=== PATIENT | male | born 1970 | race Caucasian/White ===

== ENCOUNTER 2016-11-25 14:35 | Inpatient (IN) ==
[2016-11-25] MEDS ORDERED: Sodium Chloride 0.9% 1,000 ML PRIMARY IV ONE ×2 (15:02→15:20)
[2016-11-25] MEDS ORDERED: NORMAL SALINE 10 ML SYRINGE FLUSH IVP PRN (15:02)
[2016-11-25] MEDS ORDERED: Sodium Chloride 0.9% 1,000 ML, Magnesium Sulfate 2gm (Premix) 50 ML with Multivitamin I... IV ONE ×5 (15:03)
[2016-11-25] MEDS ORDERED: LORazepam 2 MG/1 ML VIAL IVP ONE ×2 (15:04→17:08)
[2016-11-25 15:44] LABS: BASOPHILS # (AUTO) 0.19 10*3/UL; BASOPHILS % (AUTO) 2.2 % (0-1); EOSINOPHILS # (AUTO) 0 10*3/UL; EOSINOPHILS % (AUTO) 0 % (0-8); Hematocrit [HCT] 39.4 % (42.0-52.0); Hemoglobin [HGB] 13.4 g/dL (14.0-18.0); MEAN CORPUSCULAR HEMOGLOBIN 30.3 PG (27-31); MEAN CORPUSCULAR VOLUME 89.1 FL (80-90); MEAN PLATELET VOLUME 10.7 FL (7.4-12.2); MONOCYTES # (AUTO) 0.98 10*3/UL (0.3-0.8); MONOCYTES % (AUTO) 11.3 % (5-15); NEUTROPHILS # (AUTO) 6.31 10*3/UL; NEUTROPHILS % (AUTO) 72.5 % (50-80); RED BLOOD COUNT 4.42 10^6/uL (4.70-6.10)
[2016-11-25 15:53] LABS: BLOOD UREA NITROGEN 10 mg/dL (7-22); BUN/CREATININE RATIO 14.28 (6-20); MAGNESIUM 1.3 mg/dL (1.6-2.4); SERUM ALBUMIN 4.4 g/dL (3.5-4.8)
[2016-11-25 15:57] LABS: PLATELET MORPHOLOGY COMMENT NORMAL MORPHOLOGY (NORM); RBC MORPHOLOGY COMMENT NORMAL MORPHOLOGY (NORM); WBC MORPHOLOGY COMMENT NORMAL MORPHOLOGY (NORM)
[2016-11-25] MEDS ORDERED: LABETALOL 20 MG/4 ML (5 MG/1 ML) SYRINGE IVP ONE ×3 (16:14→17:33)
[2016-11-25 16:41] LABS: BILIRUBIN,URINE NEGATIVE (NEG); CLARITY,URINE CLEAR (CLEAR); COLOR,URINE YELLOW; GLUCOSE, URINE (UA) NEGATIVE (NEG); NITRATE,URINE NEGATIVE (NEG); OCCULT BLOOD,URINE NEGATIVE (NEG); PROTEIN,URINE TRACE mg/dl (NEG); UROBILINOGEN,URINE 0.2 mg/dL (0.2)
[2016-11-25 17:00] LABS: URINE SAMPLE TYPE CLEAN CATCH URINE
[2016-11-25 17:01] LABS: SQUAMOUS EPITHELIAL CELL,UR RARE
[2016-11-25 17:02] LABS: AMPHETAMINE SCREEN NEGATIVE (NEG); BACTERIA,URINE RARE; CANNABINOID SCREEN,URINE NEGATIVE (NEG); COCAINE SCREEN NEGATIVE (NEG); METHADONE URINE SCREEN NEGATIVE (NEG); METHAMPHETAMINES SCREEN,URINE NEGATIVE (NEG); OPIATE SCREEN,URINE NEGATIVE (NEG); URINE SAMPLE TYPE CLEAN CATCH URINE; URINE SPECIFIC GRAVITY - MAN 1.015
[2016-11-25] MEDS ORDERED: Belladon/PHENobarbital Elixir 10 ML, Lidocaine Viscous Liquid 2% 15 ML, Mag Hyd/Al Hyd/... PO ONE ×3 (18:15)
[2016-11-25] MEDS ORDERED: MAG HYDROX/AL HYDROX/SIMETH 30 ML SUSP PO PRN (18:28)
[2016-11-25] MEDS ORDERED: MAGNESIUM 400 MG/5 ML - 30 ML (MILK OF MAGNESIA) PO PRN (18:28)
[2016-11-25] MEDS ORDERED: NICOTINE 21 MG /DAY PATCH TRANSDERM PRN (18:28)
[2016-11-25] MEDS ORDERED: ONDANSETRON 4 MG/2 ML VIAL IV PRN (18:28)
[2016-11-25] MEDS ORDERED: LIDOCAINE W/ SODIUM BICARB 0.5 ML SYR SUBD PRN (18:28)
[2016-11-25] MEDS ORDERED: Loperamide Tab 2 MG TABLET PO PRN (18:28)
[2016-11-25] MEDS ORDERED: Diazepam 10 mg Tab (ETOH withdrawal) PO PRN (18:28)
--- NOTE | 2016-11-25 19:20 | PDOC ---
History and Physical - History of Present Illness Date and Time of Service: 11/25/2016, 1915 Chief Complaint: I'm in withdrawal History of Present Illness: This very pleasant 46-year-old male who has a binge alcohol pattern for the vast majority of his adult life, with some legal consequences, as well as health consequences and then admission in [place] for alcohol withdrawal in the past. He presents here complaining that he is in withdrawal with symptoms of sweating, nausea and vomiting, and some tremors. He states he was really not very well when he presented to the emergency room. He was hypertensive and tachycardic and got several doses of labetalol and Ativan that seemed to help. He states that he stopped drinking around 30 hours ago or so, and this was after an 8 day queen. He states he drinks hard alcohol including vodka and drinks beer and any alcoholic and get his hands on when he binge drinks. He states he was here vacationing in [place], and his symptoms got worse as he was driving home, so he stopped here for evaluation. He went through alcohol withdrawal once that required hospitalization and did a 30 day stent at an inpatient rehabilitation stay on it. He has done Alcoholics Anonymous several times. He's never been on any medications for alcohol cessation. He said he may have problems with anxiety and was on Paxil for that but that did not work is not have a primary care provider. Past Medical History Medical History: 1. Chronic alcoholism, binge pattern. 2. Arthritis status post left knee replacement. 3. History of Luz-Carter tear Surgical History: 1. Luz-Carter tear repair, endoscopically. 2. Left knee replacement Pertinent Family History: Sister has breast cancer and he has a nephew with leukemia Past Social History: Smokes, has binge alcohol pattern drinking. 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 . Lives in [place], [place], has 2 children. Tobacco Use: Current Some Day Smoker Substance Use Type: None Alcohol Use: Heavy Medication / Allergies Home Medications: Home Medications Medication Instructions Recorded Confirmed Type Omeprazole DR [PriLOSEC] 20 mg PO DAILY 11/25/16 11/25/16 History Allergies/Adverse Reactions: Allergies Allergy/AdvReac Type Severity Reaction Status Date / Time No Known Allergies Allergy Unverified 11/25/16 14:44 Review of Systems - Review of Systems All Systems: Reviewed & No Additional Complaints Except as Stated (I did a 12 point review systems and it is negative except for as per history of present illness and that noted below.) - Gastrointestinal Gastrointestinal / Abdominal: REPORTS: Heartburn (Discomfort that was relieved by GI cocktail in the emergency room) - Musculoskeletal Musculoskeletal: REPORTS: Other (Complains of joint pains, chronic. States knees are like "popcorn") Exam - Vitals Vital Signs: Vital Signs Pulse Ox 95 Oxygen Delivery Method Room Air Vital Signs - Last Taken Temperature 96.8 F 11/25/16 18:51 Pulse Rate 84 11/25/16 18:58 Respiratory Rate 20 11/25/16 18:58 Blood Pressure 162/117 11/25/16 18:58 Pulse Ox 95 11/25/16 18:58 - General General Appearance: POSITIVE: No Acute Distress, Cooperative - Head Head Exam: POSITIVE: Normal Inspection, Normocephalic, Atraumatic - Eye Eye Exam: POSITIVE: EOMI, No Scleral Icterus - ENT ENT Exam: POSITIVE: Mucous Membranes Dry - Neck Neck Exam: POSITIVE: Normal Inspection, No Tenderness, No Thyromegaly - Respiratory Respiratory Exam: POSITIVE: Clear to Auscultation - Bilaterally, Breathing Non Labored, Normal to Percussion and Palpation - Cardiovascular Cardiovascular Exam: POSITIVE: RRR, No Murmur, No Clicks, No Gallops, No Rubs, No JVD - GI/Abdominal GI/Abdominal Exam: POSITIVE: Normal Bowel Sounds, Non Tender, Non Distended, Soft - Rectal Rectal Exam: POSITIVE: Deferred - External Exam: POSITIVE: Deferred Exam: POSITIVE: Deferred - Extremities Extremities Exam: POSITIVE: No Clubbing Present, No Edema Present, No Cyanosis Present Additional Extremities Exam Details: Bilateral hand tremors consistent with withdrawal. - Back Back Exam: POSITIVE: Normal Inspection, No CVA Tenderness - Neurological Neurological Exam: POSITIVE: Alert, Oriented x 3, No Facial Droop, Speech Intact / Clear, Moves All Extremities Equally - Psychiatric Psychiatric Exam: POSITIVE: Anxious - Integumentary Integumentary Exam: POSITIVE: Normal Color, Warm, Dry, Intact - Central Line Examination Central Line Present on Admission: No Results - Labs CBC and BMP: 11/25/16 15:40 11/25/16 15:40 Labs - Last 24 Hours: Laboratory Results 11/25/16 11/25/16 11/25/16 Range/Units 15:40 16:23 16:57 WBC 8.70 (4.8-10.8) 10^3/uL RBC 4.42 L (4.70-6.10) 10^6/uL Hgb 13.4 L (14.0-18.0) g/dL Hct 39.4 L (42.0-52.0) % MCV 89.1 (80-90) FL MCH 30.3 (27-31) PG MCHC 34.0 (33-37) g/dL RDW Std Deviation 46.8 (39-50) fL RDW Coeff of Isabelle 14.6 H (11.5-14.5) % Plt Count 300 (140-350) 10*3/uL MPV 10.7 (7.4-12.2) FL Immature Gran % (Auto) 0.2 (0-5) % Neut % (Auto) 72.5 (50-80) % Lymph % (Auto) 13.8 (10-50) % [place] % (Auto) 11.3 (5-15) % Eos % (Auto) 0 (0-8) % Baso % (Auto) 2.2 H (0-1) % Immature Gran # (Auto) 0.02 10*3/UL Neut # (Auto) 6.31 10*3/UL Lymph # (Auto) 1.20 10*3/uL [place] # (Auto) 0.98 H (0.3-0.8) 10*3/UL Eos # (Auto) 0 10*3/UL Baso # (Auto) 0.19 10*3/UL WBC Morphology Comment Normal morphology (NORM) Plt Morphology Comment Normal morphology (NORM) RBC Morph Comment Normal morphology (NORM) Sodium 137 (135-145) meq/L Potassium 3.8 (3.8-5.2) meq/L Chloride 99 (98-112) meq/L Carbon Dioxide 23 (23-33) meq/L Anion Gap 15 (5-20) BUN 10 (7-22) mg/dL Creatinine 0.7 (0.70-1.50) mg/dL Estimated GFR > 60 (>60 ml/min/1.73m(2)) BUN/Creatinine Ratio 14.28 (6-20) Glucose 108 (78-110) mg/dL Calculated Osmolality 283.0 (267-292) mOsm/kg Lactic Acid 3.2 H (0.70-2.10) MMOL/L Calcium 9.7 (8.7-10.7) mg/dL Magnesium 1.3 L (1.6-2.4) mg/dL Total Bilirubin 1.2 (0.3-1.2) mg/dL AST 66 H (21-57) IU/L ALT 105 H (21-72) IU/L Alkaline Phosphatase 75 (38-126) IU/L Total Protein 7.7 (6.1-8.0) g/dL Albumin 4.4 (3.5-4.8) g/dL Globulin 3.3 (2.50-4.10) g/dL Albumin/Globulin Ratio 1.30 (1.3-2.0) mg/g Ur Collection Type Clean catch urine Urine Color Yellow Urine Clarity Clear (CLEAR) Urine pH 8.0 (5.0-8.5) Ur Specific [place] 1.015 (1.005-1.030) U Specif Grav (Refrac) 1.015 Urine Protein Trace (NEG) mg/dl Urine Glucose (UA) Negative (NEG) mg/dL Urine Ketones Trace (NEG) Urine Occult Blood Negative (NEG) Urine Nitrate Negative (NEG) Urine Bilirubin Negative (NEG) Urine Urobilinogen 0.2 (0.2) mg/dL Ur Leukocyte Esterase Negative (NEG) Urine RBC 1-3 (NONE) /hpf Urine WBC 1-3 (NONE) Ur Squamous Epith Cells Rare (NONE) Ur Renal Epithelial Cell None (NONE) Urine Crystals None Urine Bacteria Rare (NONE) Urine Casts None Urine Mucus None (NONE) Urine Trichomonas None (NONE) Urine Yeast None (NONE) Urine Opiates Screen Negative (NEG) Ur Buprenorphine Negative (NEG) Ur Oxycodone Screen Negative (NEG) Urine Methadone Screen Negative (NEG) Ur Propoxyphene Screen Negative (NEG) Barbiturate Screen Negative (NEG) U Tricyclic Antidepress Negative (NEG) Phencyclidine Screen Negative (NEG) Amphetamines Screen Negative (NEG) U Methamphetamines Scrn Negative (NEG) Benzodiazepines Screen Negative (NEG) Cocaine Screen Negative (NEG) U Marijuana (THC) Screen Negative (NEG) Serum Alcohol < 10 (0-10) mg/dL Assessment and Plan - Patient Problems (1) Alcohol withdrawal syndrome Current Visit: Yes Status: Acute Qualifiers: Complication of substance-induced condition: with unspecified complication Qualified Description: Alcohol withdrawal syndrome with complication Qualifier Code(s): (F10.239) Alcohol dependence with withdrawal, unspecified (2) Alcoholism Current Visit: Yes Status: Acute (3) Arthritis Current Visit: Yes Status: Acute - Assessment / Plan Additional Assessment/Plan Details: Admit the patient. CIWA protocol, benzodiazepines, and eventually naloxone or naltrexone therapy for prevention of heavy alcohol use if the patient is willing to do that as an outpatient. I think the patient should establish primary care provider post hospital stay. Replace electrolytes, including magnesium, and potassium as necessary. Seizure precautions. I did discuss the nature of alcohol withdrawal, and given that he has been hypertensive, this could certainly indicate that he may be going into delirium tremens, and I also discussed that upwards of 10% of patients and delirium tremens can pass on. I may use other than a try her best to see if we can hold off his alcohol withdrawal and improvement. Antiemetics and the written for, particularly with history of Luz-Carter tear. Check electrolytes and labs in morning. Plan above discussed with patient and he agreed. I think the patient should try Alcoholics Anonymous again, but ultimately I think he needs to consider other therapies as these have largely not been effective for him in the past.
[2016-11-25] MEDS: Diazepam Inj (ETOH withdrawal)10 MG/2 ML CARPUJECT IVP PRN ×2 (19:24→21:49)
[2016-11-25] MEDS ORDERED: Magnesium Sulfate 2gm (Premix) 2 GM in Premix 1 BAG IV ONE (19:33)
--- NOTE | 2016-11-25 19:39 | PDOC ---
General Adult HPI - General Chief Complaint: Drug / Alcohol Use &/or Abuse Stated Complaint: ETOH WITHDRAWAL Date Seen by Provider: 11/25/16 Time Seen by Provider: 14:50 Source: POSITIVE: Patient Exam Limitations: POSITIVE: No limitations Nurse's Notes Reviewed & Considered: Yes - History of Present Illness Initial Comment: The patient is a 46-year-old male. He lives in [place], [place] and is here on a fishing trip. He states he is a chronic alcoholic and states he started drinking alcohol at 13 or 14 years of age. He states he normally drinks about a fifth of vodka daily and has been drinking more during the last 8 days. He states he has been "on a queen". 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 Approximately 10 hours BROKER ASSISTANT he became very tremulous and states that he is "withdrawing". He states he has been treated for delirium tremens in [place] in the past, most recently about 6 months ago and on that occasion she states he had hallucinations. He states he has undergone inpatient rehabilitation for alcohol abuse in [place]. He states he's been told he has high blood pressure , but is not presently taking any antihypertensives. He states he takes Prilosec for "heartburn". Have you received a tetanus shot in the past 10 years?: Yes Body Location Affected: REPORTS: Other (Tremulousness, anxiety, "withdrawing from alcohol ".) Timing: REPORTS: Gradual, Getting Worse Duration: <24 hours Severity: Moderate Quality: REPORTS: Other (Patient denies any pain anywhere.) Context: REPORTS: Other (Stop drinking alcohol as above) Modifying Factors: improves with: Nothing. worse with: Analgesics, Antacids, Breathing, Coughing, Defecating, Vomiting, Eating, Exercise, Lying down, Urinating, Palpation, Movement, Rest, Upright Position, Walking, Remaining Still , Other Similar Symptoms Previously: Yes (has undergone treatment for alcohol withdrawal in the past in [place]) Recent Care Received: REPORTS: Denies Any Prior Injuries Related to Current Complaint?: No - Patient Home Medications Home Medications: Home Medications Omeprazole DR [PriLOSEC] 20 mg PO DAILY 11/25/16 - Patient Allergies Allergies/Adverse Reactions: Allergies Allergy/AdvReac Type Severity Reaction Status Date / Time No Known Allergies Allergy Unverified 11/25/16 14:44 Past Medical History - heen HEENT History: Denies History Cardiovascular History: Hypertension Additional Cardiovasular History: NOT CURRENTLY TREATING Respiratory History: Denies History Gastrointestinal History: Denies History Genitourinary History: Denies History Endocrine History: Denies History Musculoskeletal History: Denies History Prosthesis or Implant: No Neurological History: Denies History Blood Disorders: Denies History Psychiatric History: Denies History History of Sexually Transmitted Diseases: No Male Reproductive History: Denies History Cancer History: Denies History In Past Year Been Physically Harmed or Verbally Threatened: No History of MDRO: No History of Other Communicable Diseases: No Tobacco Use: Current Some Day Smoker Alcohol Use: Heavy How much alcohol do you normally drink a day?: 1/5 OF VODKA PER DAY Substance Use Type: None Previous Surgical History: Yes Type / Date of Surgery: LEFT KNEE Past Medical History Reviewed: Reviewed - No Changes ROS - Limitations ROS Limitations: No Limitations Constitution: REPORTS: Diaphoresis, Weakness, Other ("Tremors "Sweating.) Cardiovascular: REPORTS: Denies Cardiac Symptoms Respiratory: REPORTS: Denies Resp Symptoms Neurological: REPORTS: Denies Neuro Symptoms Gastrointestinal: REPORTS: Nausea Endocrine: REPORTS: Denies Symptoms Musculoskeletal: REPORTS: Denies MS Symptoms Genitourinary: REPORTS: Denies Symptoms Eyes: REPORTS: Denies Symptoms ENT: REPORTS: Denies Symptoms Skin: REPORTS: Denies Skin Symptoms Lympathic: REPORTS: Denies Lympathic Symptoms Immunologic: POSITIVE: Denies Symptoms Psychiatric: POSITIVE: Anxiety General Adult Exam - General Appearance General Appearance: POSITIVE: Alert, Cooperative, No Acute Distress, No Evidence of Trauma, Anxious, Moderate Distress (Due to tremulousness, anxiety, "I think my blood pressure is up".) - HEENT HEENT: POSITIVE: Head Inspection Nml, Eyes Inspection Nml, Ears Inspection Nml, Nose Inspection Nml, Oral/Dental Inspect. Nml, Pharynx Inspect. Nml, PERRL, EOMI - Pupils Pupil Size: 4 mm: Bilateral (PERRLA) - Neck Neck: POSITIVE: Normal Inspection, Thyroid Normal - Respiratory Respiratory: POSITIVE: No Respiratory Distress, Breath Sounds Normal, Chest Non- Tender - Cardiovascular Cardiovascular: POSITIVE: Regular Rate & Rhythm, No Murmur, No Gallop, PMI Normal, Tachycardia (Sinus tachycardia; Heart rate 112-1 20/m). NEGATIVE: Decreased Pulse, Irregularly Irreg. Rhythm, Occasional Extrasystoles, Frequent Extrasystoles, PMI Displaced Laterally, JVD Present, Murmur, S3 Gallop, S4 Gallop, Bradycardia, Friction Rub Peripheral Pulses: Radial (R): 2+, Radial (L): 2+ - Abdomen Abdomen: Soft: (All Quadrants), Normal Bowel Sounds: (All Quadrants), Denies Tenderness: (All Quadrants), No Splenomegaly: (All Quadrants), No Hepatomegaly: (All Quadrants), No Guarding: (All Quadrants), No Rebound: (All Quadrants), No Palpable Pulse: (All Quadrants), No [place] Mass: (All Quadrants), No Distention: (All Quadrants), No Rigidity: (All Quadrants) - Back Back: POSITIVE: Normal Inspection - Skin Skin: POSITIVE: Normal Color, Warm, Dry, No Rash - Extremities Extremity: Non-Tender: (All Extremities), Normal ROM: (All Extremities), Normal Inspection: (All Extremities) - Neurological / Psychological Neurological: POSITIVE: Oriented X3, fabrication department supervisor Normal As Tested, Motor Normal, Sensation Normal, 5, 6 General Adult Progress - Results Reviewed by me Lab Results Reviewed: Yes Lab Results:: Laboratory Results 11/25/16 11/25/16 11/25/16 Range/Units 15:40 16:23 16:57 WBC 8.70 (4.8-10.8) 10^3/uL RBC 4.42 L (4.70-6.10) 10^6/uL Hgb 13.4 L (14.0-18.0) g/dL Hct 39.4 L (42.0-52.0) % MCV 89.1 (80-90) FL MCH 30.3 (27-31) PG MCHC 34.0 (33-37) g/dL RDW Std Deviation 46.8 (39-50) fL RDW Coeff of Isabelle 14.6 H (11.5-14.5) % Plt Count 300 (140-350) 10*3/uL MPV 10.7 (7.4-12.2) FL Immature Gran % (Auto) 0.2 (0-5) % Neut % (Auto) 72.5 (50-80) % Lymph % (Auto) 13.8 (10-50) % [place] % (Auto) 11.3 (5-15) % Eos % (Auto) 0 (0-8) % Baso % (Auto) 2.2 H (0-1) % Immature Gran # (Auto) 0.02 10*3/UL Neut # (Auto) 6.31 10*3/UL Lymph # (Auto) 1.20 10*3/uL [place] # (Auto) 0.98 H (0.3-0.8) 10*3/UL Eos # (Auto) 0 10*3/UL Baso # (Auto) 0.19 10*3/UL WBC Morphology Comment Normal morphology (NORM) Plt Morphology Comment Normal morphology (NORM) RBC Morph Comment Normal morphology (NORM) Sodium 137 (135-145) meq/L Potassium 3.8 (3.8-5.2) meq/L Chloride 99 (98-112) meq/L Carbon Dioxide 23 (23-33) meq/L Anion Gap 15 (5-20) BUN 10 (7-22) mg/dL Creatinine 0.7 (0.70-1.50) mg/dL Estimated GFR > 60 (>60 ml/min/1.73m(2)) BUN/Creatinine Ratio 14.28 (6-20) Glucose 108 (78-110) mg/dL Calculated Osmolality 283.0 (267-292) mOsm/kg Lactic Acid 3.2 H (0.70-2.10) MMOL/L Calcium 9.7 (8.7-10.7) mg/dL Magnesium 1.3 L (1.6-2.4) mg/dL Total Bilirubin 1.2 (0.3-1.2) mg/dL AST 66 H (21-57) IU/L ALT 105 H (21-72) IU/L Alkaline Phosphatase 75 (38-126) IU/L Total Protein 7.7 (6.1-8.0) g/dL Albumin 4.4 (3.5-4.8) g/dL Globulin 3.3 (2.50-4.10) g/dL Albumin/Globulin Ratio 1.30 (1.3-2.0) mg/g Ur Collection Type Clean catch urine Urine Color Yellow Urine Clarity Clear (CLEAR) Urine pH 8.0 (5.0-8.5) Ur Specific [place] 1.015 (1.005-1.030) U Specif Grav (Refrac) 1.015 Urine Protein Trace (NEG) mg/dl Urine Glucose (UA) Negative (NEG) mg/dL Urine Ketones Trace (NEG) Urine Occult Blood Negative (NEG) Urine Nitrate Negative (NEG) Urine Bilirubin Negative (NEG) Urine Urobilinogen 0.2 (0.2) mg/dL Ur Leukocyte Esterase Negative (NEG) Urine RBC 1-3 (NONE) /hpf Urine WBC 1-3 (NONE) Ur Squamous Epith Cells Rare (NONE) Ur Renal Epithelial Cell None (NONE) Urine Crystals None Urine Bacteria Rare (NONE) Urine Casts None Urine Mucus None (NONE) Urine Trichomonas None (NONE) Urine Yeast None (NONE) Urine Opiates Screen Negative (NEG) Ur Buprenorphine Negative (NEG) Ur Oxycodone Screen Negative (NEG) Urine Methadone Screen Negative (NEG) Ur Propoxyphene Screen Negative (NEG) Barbiturate Screen Negative (NEG) U Tricyclic Antidepress Negative (NEG) Phencyclidine Screen Negative (NEG) Amphetamines Screen Negative (NEG) U Methamphetamines Scrn Negative (NEG) Benzodiazepines Screen Negative (NEG) Cocaine Screen Negative (NEG) U Marijuana (THC) Screen Negative (NEG) Serum Alcohol < 10 (0-10) mg/dL - Patient's Progress Pain Medication Addressed: POSITIVE: Not Applicable School/Work Release Addressed: POSITIVE: Not Applicable Re-Examine Time: 17:00 Re-Examine Comment: Patient given a banana bag IV the consisting of 1 L normal saline, 1 mg folic acid, 100 mg thiamine and 2 g magnesium sulfate. Patient also given Zofran 4 mg IV and 2 mg Ativan on arrival. He continued to be tremulous and was given another milligram of Ativan. Blood pressure on arrival was 167/127. Patient given 20 mg of labetalol followed by 2 more aliquots of 40 mg of labetalol had 15-20 minute intervals. Blood pressure on discharge from the emergency room is 151/101. Pulse is down to 85 for minute. Patient somnolent from Ativan on admission. Status: POSITIVE: Improved, Re-Examined Antibiotics Given: No - Consult Consult (If Yes, Name of Consulting MD & Time Called): Yes (Dr. Jarrell, hospitalist, [id number]) Consulting MD will see pt:: POSITIVE: [facility] Admit Counseled: POSITIVE: Patient, RE: Lab Results, RE: DX, RE: Need for F/U Patient Care Time - Estimated PCT Patient Care Time (In Minutes): 60 Vital Signs - Recent Vital Signs Vital Signs: Vital Signs (Last 8 hours) Temp Pulse Pulse Resp BP BP BP 11/25/16 18:58 84 20 162/117 11/25/16 18:51 96.8 F 84 20 162/117 11/25/16 18:28 98.4 F 84 20 162/117 11/25/16 17:56 77 181/133 11/25/16 17:53 86 163/119 11/25/16 17:36 86 143/113 11/25/16 17:30 86 165/132 11/25/16 17:03 93 199/117 11/25/16 17:00 96 168/125 11/25/16 16:49 96.8 F 88 20 159/124 11/25/16 16:45 88 159/124 11/25/16 16:30 124/84 11/25/16 16:15 169/129 11/25/16 16:00 99 169/129 11/25/16 15:45 83 188/123 11/25/16 15:30 96 185/138 11/25/16 14:47 96.6 F L 112 H 112 H 28 H 167/122 Pulse Ox 11/25/16 18:58 95 11/25/16 18:51 95 11/25/16 18:28 11/25/16 17:56 11/25/16 17:53 11/25/16 17:36 11/25/16 17:30 11/25/16 17:03 11/25/16 17:00 11/25/16 16:49 11/25/16 16:45 11/25/16 16:30 11/25/16 16:15 11/25/16 16:00 11/25/16 15:45 11/25/16 15:30 11/25/16 14:47 98 - VS Reviewed Vital Signs Reviewed: Yes Discharge Clinical Impression: Alcohol withdrawal syndrome Discharge Disposition: Admit to Inpatient Condition: Fair Date Decision to Admit to Inpatient: 11/25/16 Time Decision to Admit to Inpatient: 17:00
[2016-11-25] MEDS: ChlordiazePOXIDE 25mg Cap (ETOH withdrawal) PO SCH (20:30)
[2016-11-25] MEDS: MAGNESIUM OXIDE 400 MG TABLET PO SCH (23:20)
[2016-11-26 05:18] LABS: BASOPHILS # (AUTO) 0.07 10*3/UL; BASOPHILS % (AUTO) 1.3 % (0-1); EOSINOPHILS # (AUTO) 0.07 10*3/UL; EOSINOPHILS % (AUTO) 1.3 % (0-8); Hemoglobin [HGB] 12.8 g/dL (14.0-18.0); LYMPHOCYTES # (AUTO) 1.25 10*3/uL; MEAN CORPUSCULAR HEMOGLOBIN 29.8 PG (27-31); MEAN CORPUSCULAR HGB CONC 32.8 g/dL (33-37); MEAN CORPUSCULAR VOLUME 90.7 FL (80-90); MONOCYTES # (AUTO) 0.68 10*3/UL (0.3-0.8); MONOCYTES % (AUTO) 12.8 % (5-15); NEUTROPHILS # (AUTO) 3.24 10*3/UL; NEUTROPHILS % (AUTO) 60.9 % (50-80)
[2016-11-26 05:24] LABS: BLOOD UREA NITROGEN 9 mg/dL (7-22); BUN/CREATININE RATIO 12.85 (6-20); LIPASE 107 IU/L (23-300); MAGNESIUM 2.1 mg/dL (1.6-2.4); SERUM ALBUMIN 3.9 g/dL (3.5-4.8)
[2016-11-26 05:42] LABS: PLATELET MORPHOLOGY COMMENT NORMAL MORPHOLOGY (NORM); RBC MORPHOLOGY COMMENT NORMAL MORPHOLOGY (NORM); WBC MORPHOLOGY COMMENT NORMAL MORPHOLOGY (NORM)
[2016-11-26] MEDS: OMEPRAZOLE 20 MG CAPSULE PO SCH (07:06)
[2016-11-26] MEDS: NORMAL SALINE 10 ML SYRINGE FLUSH IVP PRN ×3 (08:29→18:04)
[2016-11-26] MEDS: ChlordiazePOXIDE 25mg Cap (ETOH withdrawal) PO SCH (08:29)
[2016-11-26] MEDS: MAGNESIUM OXIDE 400 MG TABLET PO SCH ×2 (08:29→20:03)
[2016-11-26] MEDS ORDERED: POTASSIUM CHLORIDE 20 MEQ TAB PO ONE (09:43)
--- NOTE | 2016-11-26 14:06 | PDOC(PROG) ---
Date and Time of Service: 11/26/2016, 1406 Interval History: No complaints of chest pain or shortness breath. Still has had diaphoresis per RN. Has tremulousness hands. Overall, is feeling better. Electrolytes improved to some degree. No nausea or vomiting. No abdominal pain. Objective : Data - Labs CBC and BMP: 11/26/16 04:30 11/26/16 04:30 Labs - Last 24 Hours: Laboratory Results 11/26/16 Range/Units 04:30 WBC 5.32 (4.8-10.8) 10^3/uL RBC 4.30 L (4.70-6.10) 10^6/uL Hgb 12.8 L (14.0-18.0) g/dL Hct 39.0 L (42.0-52.0) % MCV 90.7 H (80-90) FL MCH 29.8 (27-31) PG MCHC 32.8 L (33-37) g/dL RDW Std Deviation 47.2 (39-50) fL RDW Coeff of Isabelle 14.6 H (11.5-14.5) % Plt Count 250 (140-350) 10*3/uL MPV 11.0 (7.4-12.2) FL Immature Gran % (Auto) 0.2 (0-5) % Neut % (Auto) 60.9 (50-80) % Lymph % (Auto) 23.5 (10-50) % [place] % (Auto) 12.8 (5-15) % Eos % (Auto) 1.3 (0-8) % Baso % (Auto) 1.3 H (0-1) % Immature Gran # (Auto) 0.01 10*3/UL Neut # (Auto) 3.24 10*3/UL Lymph # (Auto) 1.25 10*3/uL [place] # (Auto) 0.68 (0.3-0.8) 10*3/UL Eos # (Auto) 0.07 10*3/UL Baso # (Auto) 0.07 10*3/UL WBC Morphology Comment Normal morphology (NORM) Plt Morphology Comment Normal morphology (NORM) RBC Morph Comment Normal morphology (NORM) PT 10.4 (9.7-11.4) secs INR 0.98 (0.00-5.90) N/A Sodium 138 (135-145) meq/L Potassium 3.6 L (3.8-5.2) meq/L Chloride 104 (98-112) meq/L Carbon Dioxide 23 (23-33) meq/L Anion Gap 11 (5-20) BUN 9 (7-22) mg/dL Creatinine 0.7 (0.70-1.50) mg/dL Estimated GFR > 60 (>60 ml/min/1.73m(2)) BUN/Creatinine Ratio 12.85 (6-20) Glucose 92 (78-110) mg/dL Calculated Osmolality 284.0 (267-292) mOsm/kg Calcium 8.7 (8.7-10.7) mg/dL Magnesium 2.1 (1.6-2.4) mg/dL Total Bilirubin 1.3 H (0.3-1.2) mg/dL AST 59 H (21-57) IU/L ALT 84 H (21-72) IU/L Alkaline Phosphatase 65 (38-126) IU/L Total Protein 6.8 (6.1-8.0) g/dL Albumin 3.9 (3.5-4.8) g/dL Globulin 3.0 (2.50-4.10) g/dL Albumin/Globulin Ratio 1.30 (1.3-2.0) mg/g Lipase 107 (23-300) IU/L Objective : Exam - General General Appearance: No Acute Distress, Cooperative Additional General Exam Details: Vital Signs - Last Taken Temperature 97.8 F 11/26/16 11:49 Pulse Rate 88 11/26/16 11:49 Respiratory Rate 18 11/26/16 11:49 Blood Pressure 169/124 11/26/16 11:49 Pulse Ox 95 11/26/16 11:16 - Head Head Exam: Normal Inspection, Normocephalic, Atraumatic - Eye Eye Exam: No Scleral Icterus - ENT ENT Exam: Mucous Membranes Moist - Respiratory Respiratory Exam: Clear to Auscultation - Bilaterally, Breathing Non Labored - Cardiovascular Cardiovascular Exam: RRR, No Murmur, No Clicks, No Gallops, No Rubs, No JVD - GI/Abdominal GI/Abdominal Exam: Normal Bowel Sounds, Non Tender, Non Distended, Soft - Rectal Rectal Exam: Deferred - External Exam: Deferred Exam: Deferred - Extremities Extremities Exam: No Clubbing Present, No Edema Present, No Cyanosis Present - Neurological Neurological Exam: Alert, Oriented x 3, No Facial Droop, Speech Intact / Clear, Moves All Extremities Equally Assessment and Plan - Patient Problems (1) Alcohol withdrawal syndrome Current Visit: Yes Status: Acute Qualifiers: Complication of substance-induced condition: with unspecified complication Qualified Description: Alcohol withdrawal syndrome with complication Qualifier Code(s): (F10.239) Alcohol dependence with withdrawal, unspecified (2) Alcoholism Current Visit: Yes Status: Acute (3) Arthritis Current Visit: Yes Status: Acute - Assessment / Plan Additional Assessment/Plan Details: Remains quite hypertensive, but otherwise withdrawal symptoms are improving. Probably needs another 24 hours to get out at highest risk factor for withdrawal seizures or other worsening complication such as development of DTs. Replace potassium. If all goes well, withdrawal continues to improve, I think he could go home tomorrow from that standpoint. May trial naltrexone as an outpatient [facility] for hypertension. Strongly advised following up with primary care provider in [facility]. He states he does not smoke.
[2016-11-26] MEDS: ACETAMINOPHEN 500 MG TABLET PO PRN ×2 (15:41→20:03)
[2016-11-26] MEDS: Diazepam Inj (ETOH withdrawal)10 MG/2 ML CARPUJECT IVP PRN ×3 (15:42→23:06)
[2016-11-26] MEDS: LABETALOL 20 MG/4 ML (5 MG/1 ML) SYRINGE IVP PRN (18:04)
[2016-11-27] MEDS: LABETALOL 20 MG/4 ML (5 MG/1 ML) SYRINGE IVP PRN (00:26)
[2016-11-27] MEDS: NORMAL SALINE 10 ML SYRINGE FLUSH IVP PRN (00:28)
[2016-11-27 05:19] LABS: BLOOD UREA NITROGEN 7 mg/dL (7-22); MAGNESIUM 2.2 mg/dL (1.6-2.4); SERUM ALBUMIN 3.7 g/dL (3.5-4.8)
[2016-11-27] MEDS: OMEPRAZOLE 20 MG CAPSULE PO SCH (07:22)
[2016-11-27 07:31] VITALS: RESP 18
[2016-11-27 08:57] VITALS: TEMP 97.5
[2016-11-27] MEDS: MAGNESIUM OXIDE 400 MG TABLET PO SCH (08:57)
--- NOTE | 2016-11-27 11:28 | DCSUMMARY ---
Hospitalization Summary Admit Date: 11/25/16 Discharge Date: 11/27/16 Primary Diagnosis:: Alcohol withdrawal Hospital Course: This is a 46 YO male that presented with symptoms of alcohol withdrawal and high blood pressure. He was admitted and managed in the hospital on [facility] protocol. By the time of discharge, his symptoms of withdrawal had resolved. No seizures or delirium were noted. Heart rates improved and blood pressures did require treatment with PRN labetalol and norvasc. 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 He tolerated norvasc well. We talked about the fact that he may need more blood pressure medications as the time goes on, and that the average for blood pressure management as 3 medications, but he might benefit from exercise, alcohol cessation, and dietary changes. I advised him to follow with the primary care provider within 7 days of discharge. In terms of his alcohol abstinence, I also offered naltrexone which he accepted. I wrote him a prescription for 50 mg by mouth daily. I also advised him in addition to Alcoholics Anonymous, to consider other therapy options. Essentially, I told him that the definition of insanity is doing the same thing and expecting different results. He has tried Alcoholics Anonymous and inpatient rehabilitation without success, so I think it is time for him to delve into exploring whether or not he has an anxiety disorder and dealing with those issues in order to help him with his alcohol cessation. I did warn the patient that if he continues down the road of alcohol abuse, he will likely develop cirrhosis and liver failure and likely of complications of these issues. He is likely to have further medical and legal problems from his alcohol abuse if he continues as well and I warned him of those facts. Today, but chest pain, shortness breath, nausea or vomiting, he is alert, no abdominal pain, and is ready to go home. Assessment and Plan: 1. As per discharge assessments noted 2. Disposition: Patient is discharged home. 3. Condition on discharge, stable and improved. 4. Diet: regular diet 5. Activities: resume normal activities, but stop alcohol 6. Follow-Up: 1. Primary care provider in one week 2. 7. Medications at the Time of Discharge: Home Medications Medication Instructions Recorded Confirmed Type Omeprazole DR [PriLOSEC] 20 mg PO DAILY 11/25/16 11/25/16 History Amlodipine Besylate [Norvasc] 10 mg PO DAILY #30 tab 11/27/16 Rx Naltrexone HCl 50 mg PO DAILY #30 tablet 11/27/16 Rx 8. Time, care, counseling and coordination of care for this discharge is less than 30 minutes. Exam - Vitals Vital Signs: Vital Signs Vital Signs - Last Taken Temperature 97.5 F 11/27/16 08:43 Pulse Rate 83 11/27/16 08:43 Respiratory Rate 18 11/27/16 08:43 Blood Pressure 145/111 11/27/16 08:43 Pulse Ox 96 11/27/16 07:29 - General General Appearance: POSITIVE: No Acute Distress, Cooperative - Head Head Exam: POSITIVE: Normal Inspection, Normocephalic, Atraumatic - Eye Eye Exam: POSITIVE: No Scleral Icterus - ENT ENT Exam: POSITIVE: Mucous Membranes Moist - Respiratory Respiratory Exam: POSITIVE: Clear to Auscultation - Bilaterally, Breathing Non Labored - Cardiovascular Cardiovascular Exam: POSITIVE: RRR, No Murmur, No Clicks, No Gallops, No Rubs, No JVD - GI/Abdominal GI/Abdominal Exam: POSITIVE: Normal Bowel Sounds, Non Tender, Non Distended, Soft - Extremities Extremities Exam: POSITIVE: No Clubbing Present, No Edema Present, No Cyanosis Present - Neurological Neurological Exam: POSITIVE: Alert, Oriented x 3, Normal Gait, No Facial Droop, Speech Intact / Clear, Moves All Extremities Equally - Psychiatric Psychiatric Exam: POSITIVE: Normal Affect, Normal Mood Data Perinent Studies: Laboratory Results 11/25/16 11/25/16 11/25/16 Range/Units 15:40 16:23 16:57 WBC 8.70 (4.8-10.8) 10^3/uL RBC 4.42 L (4.70-6.10) 10^6/uL Hgb 13.4 L (14.0-18.0) g/dL Hct 39.4 L (42.0-52.0) % MCV 89.1 (80-90) FL MCH 30.3 (27-31) PG MCHC 34.0 (33-37) g/dL RDW Std Deviation 46.8 (39-50) fL RDW Coeff of Isabelle 14.6 H (11.5-14.5) % Plt Count 300 (140-350) 10*3/uL MPV 10.7 (7.4-12.2) FL Immature Gran % (Auto) 0.2 (0-5) % Neut % (Auto) 72.5 (50-80) % Lymph % (Auto) 13.8 (10-50) % [place] % (Auto) 11.3 (5-15) % Eos % (Auto) 0 (0-8) % Baso % (Auto) 2.2 H (0-1) % Immature Gran # (Auto) 0.02 10*3/UL Neut # (Auto) 6.31 10*3/UL Lymph # (Auto) 1.20 10*3/uL [place] # (Auto) 0.98 H (0.3-0.8) 10*3/UL Eos # (Auto) 0 10*3/UL Baso # (Auto) 0.19 10*3/UL WBC Morphology Comment Normal morphology (NORM) Plt Morphology Comment Normal morphology (NORM) RBC Morph Comment Normal morphology (NORM) PT (9.7-11.4) secs INR (0.00-5.90) N/A Sodium 137 (135-145) meq/L Potassium 3.8 (3.8-5.2) meq/L Chloride 99 (98-112) meq/L Carbon Dioxide 23 (23-33) meq/L Anion Gap 15 (5-20) BUN 10 (7-22) mg/dL Creatinine 0.7 (0.70-1.50) mg/dL Estimated GFR > 60 (>60 ml/min/1.73m(2)) BUN/Creatinine Ratio 14.28 (6-20) Glucose 108 (78-110) mg/dL Calculated Osmolality 283.0 (267-292) mOsm/kg Lactic Acid 3.2 H (0.70-2.10) MMOL/L Calcium 9.7 (8.7-10.7) mg/dL Magnesium 1.3 L (1.6-2.4) mg/dL Total Bilirubin 1.2 (0.3-1.2) mg/dL AST 66 H (21-57) IU/L ALT 105 H (21-72) IU/L Alkaline Phosphatase 75 (38-126) IU/L Total Protein 7.7 (6.1-8.0) g/dL Albumin 4.4 (3.5-4.8) g/dL Globulin 3.3 (2.50-4.10) g/dL Albumin/Globulin Ratio 1.30 (1.3-2.0) mg/g Lipase (23-300) IU/L Ur Collection Type Clean catch urine Urine Color Yellow Urine Clarity Clear (CLEAR) Urine pH 8.0 (5.0-8.5) Ur Specific Premium 1.015 (1.005-1.030) U Specif Grav (Refrac) 1.015 Urine Protein Trace (NEG) mg/dl Urine Glucose (UA) Negative (NEG) mg/dL Urine Ketones Trace (NEG) Urine Occult Blood Negative (NEG) Urine Nitrate Negative (NEG) Urine Bilirubin Negative (NEG) Urine Urobilinogen 0.2 (0.2) mg/dL Ur Leukocyte Esterase Negative (NEG) Urine RBC 1-3 (NONE) /hpf Urine WBC 1-3 (NONE) Ur Squamous Epith Cells Rare (NONE) Ur Renal Epithelial Cell None (NONE) Urine Crystals None Urine Bacteria Rare (NONE) Urine Casts None Urine Mucus None (NONE) Urine Trichomonas None (NONE) Urine Yeast None (NONE) Urine Opiates Screen Negative (NEG) Ur Buprenorphine Negative (NEG) Ur Oxycodone Screen Negative (NEG) Urine Methadone Screen Negative (NEG) Ur Propoxyphene Screen Negative (NEG) Barbiturate Screen Negative (NEG) U Tricyclic Antidepress Negative (NEG) Phencyclidine Screen Negative (NEG) Amphetamines Screen Negative (NEG) U Methamphetamines Scrn Negative (NEG) Benzodiazepines Screen Negative (NEG) Cocaine Screen Negative (NEG) U Marijuana (THC) Screen Negative (NEG) Serum Alcohol < 10 (0-10) mg/dL 11/26/16 11/27/16 Range/Units 04:30 04:50 WBC 5.32 (4.8-10.8) 10^3/uL RBC 4.30 L (4.70-6.10) 10^6/uL Hgb 12.8 L (14.0-18.0) g/dL Hct 39.0 L (42.0-52.0) % MCV 90.7 H (80-90) FL MCH 29.8 (27-31) PG MCHC 32.8 L (33-37) g/dL RDW Std Deviation 47.2 (39-50) fL RDW Coeff of Isabelle 14.6 H (11.5-14.5) % Plt Count 250 (140-350) 10*3/uL MPV 11.0 (7.4-12.2) FL Immature Gran % (Auto) 0.2 (0-5) % Neut % (Auto) 60.9 (50-80) % Lymph % (Auto) 23.5 (10-50) % [place] % (Auto) 12.8 (5-15) % Eos % (Auto) 1.3 (0-8) % Baso % (Auto) 1.3 H (0-1) % Immature Gran # (Auto) 0.01 10*3/UL Neut # (Auto) 3.24 10*3/UL Lymph # (Auto) 1.25 10*3/uL [place] # (Auto) 0.68 (0.3-0.8) 10*3/UL Eos # (Auto) 0.07 10*3/UL Baso # (Auto) 0.07 10*3/UL WBC Morphology Comment Normal morphology (NORM) Plt Morphology Comment Normal morphology (NORM) RBC Morph Comment Normal morphology (NORM) PT 10.4 (9.7-11.4) secs INR 0.98 (0.00-5.90) N/A Sodium 138 140 (135-145) meq/L Potassium 3.6 L 4.2 (3.8-5.2) meq/L Chloride 104 112 (98-112) meq/L Carbon Dioxide 23 21 L (23-33) meq/L Anion Gap 11 7 (5-20) BUN 9 7 (7-22) mg/dL Creatinine 0.7 0.7 (0.70-1.50) mg/dL Estimated GFR > 60 > 60 (>60 ml/min/1.73m(2)) BUN/Creatinine Ratio 12.85 10.00 (6-20) Glucose 92 97 (78-110) mg/dL Calculated Osmolality 284.0 287.0 (267-292) mOsm/kg Lactic Acid (0.70-2.10) MMOL/L Calcium 8.7 8.5 L (8.7-10.7) mg/dL Magnesium 2.1 2.2 (1.6-2.4) mg/dL Total Bilirubin 1.3 H 0.5 (0.3-1.2) mg/dL AST 59 H 180 H (21-57) IU/L ALT 84 H 200 H (21-72) IU/L Alkaline Phosphatase 65 70 (38-126) IU/L Total Protein 6.8 6.7 (6.1-8.0) g/dL Albumin 3.9 3.7 (3.5-4.8) g/dL Globulin 3.0 3.0 (2.50-4.10) g/dL Albumin/Globulin Ratio 1.30 1.20 L (1.3-2.0) mg/g Lipase 107 (23-300) IU/L Ur Collection Type Urine Color Urine Clarity (CLEAR) Urine pH (5.0-8.5) Ur Specific Premium (1.005-1.030) U Specif Grav (Refrac) Urine Protein (NEG) mg/dl Urine Glucose (UA) (NEG) mg/dL Urine Ketones (NEG) Urine Occult Blood (NEG) Urine Nitrate (NEG) Urine Bilirubin (NEG) Urine Urobilinogen (0.2) mg/dL Ur Leukocyte Esterase (NEG) Urine RBC (NONE) /hpf Urine WBC (NONE) Ur Squamous Epith Cells (NONE) Ur Renal Epithelial Cell (NONE) Urine Crystals Urine Bacteria (NONE) Urine Casts Urine Mucus (NONE) Urine Trichomonas (NONE) Urine Yeast (NONE) Urine Opiates Screen (NEG) Ur Buprenorphine (NEG) Ur Oxycodone Screen (NEG) Urine Methadone Screen (NEG) Ur Propoxyphene Screen (NEG) Barbiturate Screen (NEG) U Tricyclic Antidepress (NEG) Phencyclidine Screen (NEG) Amphetamines Screen (NEG) U Methamphetamines Scrn (NEG) Benzodiazepines Screen (NEG) Cocaine Screen (NEG) U Marijuana (THC) Screen (NEG) Serum Alcohol (0-10) mg/dL Patient Problems - Patient Problem List (1) Alcohol withdrawal syndrome Status: Resolved Qualifiers: Complication of substance-induced condition: with unspecified complication Qualified Description: Alcohol withdrawal syndrome with complication Qualifier Code(s): (F10.239) Alcohol dependence with withdrawal, unspecified (2) Hypertension Status: Acute Qualifiers: Hypertension type: essential hypertension Qualified Description: Essential hypertension Qualifier Code(s): (I10) Essential (primary) hypertension (3) Alcoholism Status: Chronic (4) Arthritis Status: Acute
[2016-11-28] MEDS ORDERED: Multivitamin Tab 1 TAB PO SCH (09:00)
[2016-11-30] MEDS ORDERED: Thiamine Tab 100 MG TAB PO SCH (17:29)
== END 2016-11-27 11:00 | disposition home or self-care (01) | DRG 897 ==
LOC: ER 14:35 → MED/SURG 17:27
PROVIDERS: ADMIT Family Medicine; ATTEND Family Medicine

== ENCOUNTER 2017-07-25 08:48 | Inpatient (IN) ==
[2017-07-25] MEDS ORDERED: LORazepam 2 MG/1 ML VIAL IVP ONE ×2 (08:59→11:17)
[2017-07-25] MEDS ORDERED: NORMAL SALINE 10 ML SYRINGE FLUSH IVP PRN (09:03)
[2017-07-25] MEDS ORDERED: Sodium Chloride 0.9% 1,000 ML, Magnesium Sulfate 2gm (Premix) 50 ML with Multivitamin I... IV ONE ×5 (09:04)
--- NOTE | 2017-07-25 09:07 | EKG ---
[address] [address] Measurements Intervals [place] Rate: 106 P: 58 UT: 173 QRS: 74 QRSD: 89 T: 57 QT: 334 QTc: 396 Interpretive Statements SINUS TACHYCARDIA ABNORMAL RHYTHM ECG No previous ECG available for comparison Electronically Signed On 07-25-17 14:41:08 MDT by Fransisco Isaac [email or web address]
--- NOTE | 2017-07-25 09:11 | PDOC ---
General Adult HPI - General Chief Complaint: Chest Pain Stated Complaint: chest pain Date Seen by Provider: 07/25/17 Time Seen by Provider: 09:00 Source: POSITIVE: Patient, EMS Exam Limitations: POSITIVE: No limitations Nurse's Notes Reviewed & Considered: Yes EMS Report Reviewed & Considered: Verbal - History of Present Illness Initial Comment: The patient is a 47-year-old male who is brought to the emergency department by ambulance with complaints of alcohol withdrawal. He states that for the past month and a half or so he has been drinking heavily. He admits to drinking 2 fifths of vodka daily. He states he has not had anything to drink now for approximately 20 hours. He states he started experiencing significant withdrawal symptoms this morning. He is shaky and weak. He also states that he has been having some increase shortness of breath for some time now as well as some swelling in his legs. He has a history of hypertension as well and has not been taking his medication for the past 4 or 5 days. He denies any history of liver disease. He has not had any recent vomiting. He denies any current chest pain. There was some mention of chest pain when he was in route however by the time he arrived here he is no longer complaining of that. He does report some abdominal pain. He also reports history of hiatal hernia and previous Luz-Carter tear. He has not had any recent vomiting and denies any hematemesis or blood in his stool however he has had some dark stools for the past several months at least. He does take Prilosec regularly. Have you received a tetanus shot in the past 10 years?: Yes - Patient Home Medications Home Medications: Home Medications Omeprazole DR [PriLOSEC] 20 mg PO DAILY 11/25/16 Amlodipine Besylate [Norvasc] 10 mg PO DAILY #30 tab 11/27/16 Naltrexone HCl 50 mg PO DAILY #30 tab 11/27/16 - Patient Allergies Allergies/Adverse Reactions: Allergies 3 Allergy/AdvReac Type Severity Reaction Status Date / Time No Known Allergies Allergy Verified 11/27/16 01:39 Past Medical History - angelito SHIPLEY History: Denies History Cardiovascular History: Hypertension Additional Cardiovasular History: NOT CURRENTLY TREATING Respiratory History: Denies History Gastrointestinal History: Denies History Genitourinary History: Denies History Endocrine History: Denies History Musculoskeletal History: Denies History Prosthesis or Implant: No Neurological History: Denies History Blood Disorders: Denies History Psychiatric History: Denies History History of Sexually Transmitted Diseases: No Cancer History: Denies History History of MDRO: No History of Other Communicable Diseases: No Alcohol Use: Heavy In the Past 12 Months, Have Used or Abuse Any Substance: None Previous Surgical History: Yes Type / Date of Surgery: LEFT KNEE Past Medical History Reviewed: Reviewed - No Changes ROS - Limitations ROS Limitations: No Limitations Constitution: REPORTS: Other (Generalized weakness and shakiness) Cardiovascular: DENIES: Chest Pain Respiratory: REPORTS: Shortness Of Breath. DENIES: Cough Non Productive, Cough Productive, Hurts To Breathe Neurological: REPORTS: Dizziness. DENIES: Seizure Activity Gastrointestinal: REPORTS: Abdominal Pain, Nausea, Black Stools. DENIES: Vomitting, Bloody Stools Endocrine: REPORTS: Fatigue Musculoskeletal: REPORTS: Lower Extremity Swelling Eyes: REPORTS: Denies Symptoms ENT: REPORTS: Denies Symptoms Skin: DENIES: Rash General Adult Exam - General Appearance General Appearance: POSITIVE: Alert, Anxious - HEENT HEENT: POSITIVE: Head Inspection Nml, Eyes Inspection Nml, Ears Inspection Nml, Pharynx Inspect. Nml - Neck Neck: POSITIVE: Normal Inspection, Lymphadenopathy - Respiratory Respiratory: POSITIVE: No Respiratory Distress, Breath Sounds Normal - Cardiovascular Cardiovascular: POSITIVE: Regular Rate & Rhythm, No Murmur - Abdomen Abdomen: Soft: (All Quadrants), Denies Tenderness: (All Quadrants), No Distention: (All Quadrants) - Skin Skin: POSITIVE: Normal Color, No Rash - Extremities Extremity: Normal ROM: (All Extremities) Additional Extremities Details: He does have edema in the lower extremities bilaterally General Adult Progress - Results Reviewed by me Xrays/CTs/US Reviewed by me: Yes Discussed with Radiologist: Yes Radiology Findings: CTA of the chest shows no evidence of PE and no other acute abnormalities per radiologist. CT scan of the abdomen and pelvis shows no acute intra-abdominal pathology per radiologist verbal report. Lab Results Reviewed by Me: Yes CBC and BMP: 07/25/17 08:55 07/25/17 08:55 EKG Interpretation:: POSITIVE: Other (His EKG here shows sinus tachycardia with no acute ST segment or T-wave changes.) - Patient's Progress MDM / ED Course: On arrival the patient does appear to be experiencing withdrawal. He is somewhat hypertensive and tachycardic and shaky. An IV had been established per EMS in route and the patient did receive Zofran prior to arrival. He received 2 mg of Ativan here. His EKG done shortly after arrival shows sinus tachycardia with no evidence of acute ST segment or T-wave changes. His initial CIWA score was 31. He received 2 mg of Ativan IV. He also received a banana bag. Blood work revealed an elevated d-dimer at 3.5 and mildly elevated lipase at 400. He is also anemic with a hemoglobin of 9.2. The patient does admit to some intermittent dark stools over the past several months and likely has some chronic GI loss and/or ulcer. He did receive Protonix 40 mg IV. CTA of the chest shows no evidence of PE or any other acute intrathoracic abnormality per radiologist. CT scan of the abdomen and pelvis also shows no acute abnormalities per radiologist. Some of his shortness of breath is likely related to his anemia. He also has significant alcohol withdrawal despite an alcohol level of 235. After the initial administration of 2 mg of Ativan and after CT his CIWA score had improved to 21 and he received another 1 mg of Ativan. Decision at this time is to admit the patient for further treatment of alcohol withdrawal and anemia. Dr. Prieto has agreed to admit the patient. - Consult Counseled: POSITIVE: Patient, RE: Lab Results, RE: Radiology Results, RE: DX, RE : Need for F/U Patient Care Time - Estimated PCT Patient Care Time (In Minutes): 50 Vital Signs - Recent Vital Signs Vital Signs: Vital Signs (Last 8 hours) Temp Pulse Pulse Resp BP BP Pulse Ox 07/25/17 11:09 97.9 F 109 H 22 149/93 07/25/17 09:09 97.7 F 107 H 18 153/107 07/25/17 08:57 97.7 F 107 H 18 153/107 100 - VS Reviewed Vital Signs Reviewed: Yes Discharge Clinical Impression: Alcohol withdrawal syndrome, Hypertension, Anemia, Alcoholism Discharge Disposition: Admit to Inpatient Condition: Fair Follow Up With: NONE,NONE [Primary Care Provider] - Date Decision to Admit to Inpatient: 07/25/17 Time Decision to Admit to Inpatient: 11:10
[2017-07-25 09:13] LABS: BASOPHILS # (AUTO) 0.09 10*3/UL; BASOPHILS % (AUTO) 1.3 % (0-1); EOSINOPHILS # (AUTO) 0.09 10*3/UL; EOSINOPHILS % (AUTO) 1.3 % (0-8); Hematocrit [HCT] 30.2 % (42.0-52.0); Hemoglobin [HGB] 9.2 g/dL (14.0-18.0); LYMPHOCYTES # (AUTO) 1.73 10*3/uL; MEAN CORPUSCULAR HEMOGLOBIN 24.1 PG (27-31); MEAN CORPUSCULAR HGB CONC 30.5 g/dL (33-37); MEAN CORPUSCULAR VOLUME 79.1 FL (80-90); MEAN PLATELET VOLUME 11.3 FL (7.4-12.2); MONOCYTES # (AUTO) 1.24 10*3/UL (0.3-0.8); MONOCYTES % (AUTO) 17.4 % (5-15); NEUTROPHILS # (AUTO) 3.97 10*3/UL; NEUTROPHILS % (AUTO) 55.6 % (50-80); RED BLOOD COUNT 3.82 10^6/uL (4.70-6.10)
[2017-07-25 09:17] LABS: BLOOD UREA NITROGEN 7 mg/dL (7-22); BUN/CREATININE RATIO 8.75 (6-20); SERUM ALBUMIN 4.6 g/dL (3.5-4.8)
[2017-07-25 09:19] LABS: LIPASE 410 IU/L (23-300)
[2017-07-25] MEDS ORDERED: Sodium Chloride 0.9% 1,000 ML with Multivitamin Inj 10 ML, Thiamine Inj 100 MG, Folic A... IV ONE ×5 (09:30)
[2017-07-25 09:33] LABS: PLATELET MORPHOLOGY COMMENT NORMAL MORPHOLOGY (NORM); RBC MORPHOLOGY COMMENT NORMAL MORPHOLOGY (NORM); WBC MORPHOLOGY COMMENT NORMAL MORPHOLOGY (NORM)
[2017-07-25] MEDS ORDERED: ONDANSETRON 4 MG/2 ML VIAL IVP ONE (09:33)
[2017-07-25] MEDS ORDERED: Pantoprazole Inj 40 MG in Normal Saline Flush 10 ML IVP ONE (09:46)
[2017-07-25] MEDS ORDERED: PANTOPRAZOLE IV 40 MG VIAL ONE (09:50)
--- NOTE | 2017-07-25 10:59 | DI ---
CT CTA Chest Non-Coronary WWO,07/25/2017 9:38 AM: Clinical History: Shortness of breath and elevated d-dimer. Previous Exam: None at this facility. Findings: Multiple helically acquired CT images are obtained through the chest following the intravenous admini stration of 75 cc of Isovue-370, and demonstrates some mild motion artifact. There is no evidence of filling defect or truncation to suggest pulmonary embolism. There is no evidence of infiltrate nor effusion. There is no coronary artery calcifications. There is no mediastinal lymphadenopathy. There is no evidence of pericardial effusion. The upper abdomen demonstrates diffuse fatty infiltration of the liver. Impression: 1. No evidence of pulmonary embolism. 2. No evidence of acute intrathoracic pathology.
--- NOTE | 2017-07-25 11:17 | DI ---
CT Abdomen/Pelvis W Contrast,07/25/2017 9:38 AM: Clinical History: Abdominal pain and elevated lipase. Previous Exam: None at this facility. Findings: Multiple helically acquired CT images are obtained through the abdomen and pelvis following the intra venous administration of contrast. The urinary bladder is unremarkable. There is no free fluid. The c olon is normal. The appendix is normal. There is diffuse fatty infiltration of the liver. The gallbla dder is unremarkable. The adrenals and kidneys are unremarkable. The pancreas is grossly normal without evidence of pseudocyst or abscess. Minimal degenerative changes of the spine are seen. Impression: 1. No evidence of pancreatitis. 2. Diffuse fatty infiltration of the liver.
[2017-07-25 11:20] LABS: BILIRUBIN,URINE NEGATIVE (NEG); CLARITY,URINE CLEAR (CLEAR); COLOR,URINE YELLOW (Y); GLUCOSE, URINE (UA) NEGATIVE (NEG); OCCULT BLOOD,URINE NEGATIVE (NEG); PH,URINE 7.5 (5.0-8.5); PROTEIN,URINE NEGATIVE (NEG)
--- NOTE | 2017-07-25 11:23 | PDOC ---
HPI - History of Present Illness History of Present Illness: This very nice 47-year-old gentleman was seen in the ER for alcohol withdrawal syndrome he has been drinking heavily for the past 1-1/2 months about 2/5 of vodka a day. His last drink was about 24 hours ago and was very shaky and weak tremors with tachycardic this morning denies chest pain or vomiting also had some abdominal pain and the patient had a CT scan but he has had some dark stools in the past year over the last month he is not suicidal homicidal Past Medical History Medical History: 1. Chronic alcoholism, binge pattern. 2. Arthritis status post left knee replacement. 3. History of Luz-Carter tear Surgical History: 1. Luz-Carter tear repair, endoscopically. 2. Left knee replacement Pertinent Family History: Sister has breast cancer and he has a nephew with leukemia Past Social History: Smokes, has binge alcohol pattern drinking. 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 . Lives in [place], [place], has 2 children. Tobacco Use: Current Some Day Smoker In the Past 12 Months, Have Used or Abuse Any of the Following Substance: None Medication / Allergies Home Medications: Home Medications 3 Medication Instructions Recorded Confirmed Type Omeprazole DR [PriLOSEC] 20 mg PO DAILY 11/25/16 07/25/17 History Amlodipine Besylate [Norvasc] 10 mg PO DAILY #30 tab 11/27/16 07/25/17 Rx Naltrexone HCl 50 mg PO DAILY #30 tab 11/27/16 07/25/17 Rx Lisinopril 10 mg PO DAILY 07/25/17 07/25/17 History Allergies/Adverse Reactions: Allergies 3 Allergy/AdvReac Type Severity Reaction Status Date / Time No Known Allergies Allergy Verified 11/27/16 01:39 Review of Systems - Review of Systems All Systems: Reviewed & No Additional Complaints Except as Stated - Respiratory Respiratory: DENIES: Negative System Review, Cough, Sputum, Dyspnea At Rest, Dyspnea with Exertion, Pleuritic Pain, Hemoptysis, Wheezing, Other, See HPI - Cardiovascular Cardiovascular: DENIES: Negative System Review, Chest Pain, Edema, Syncope, Palpitations, Orthopnea, Paroxysmal Nocturnal Dyspnea, Other, See HPI - Gastrointestinal Gastrointestinal / Abdominal: REPORTS: Nausea, Heartburn - Genitourinary Genitourinary: DENIES: Negative System Review, Pain, Burning, Hematuria, Incontinence, Urgency, Hesitant Stream, Decreased Stream, Nocutria, Discharge, Sexual Dysfunction, Other, See HPI Exam - Vitals Vital Signs: Vital Signs Temperature 97.9 F Temperature Source Temporal Artery Scan Pulse Rate [Telemetry] 107 Pulse Rate 109 Respiratory Rate 22 Blood Pressure [right] 153/107 Blood Pressure 149/93 Pulse Ox 100 Oxygen Delivery Method Room Air Height 6 ft 3 in Weight 280 lb - General General Appearance: Cooperative, Mild Distress, Disheveled, Obese - Head Head Exam: Normal Inspection, Normocephalic, Atraumatic - Eye Eye Exam: POSITIVE: Normal Appearance, PERRL, EOMI, No Scleral Icterus - Respiratory Respiratory Exam: POSITIVE: Clear to Auscultation - Bilaterally, Breathing Non Labored, Normal To Percussion, Normal to Percussion and Palpation - Cardiovascular Cardiovascular Exam: POSITIVE: RRR, No Murmur, No Clicks, No Gallops, No Rubs, PMI Non-Displaced - GI/Abdominal GI/Abdominal Exam: POSITIVE: Normal Bowel Sounds, Non Tender, Non Distended, Soft, No Masses, No Hepatomegaly, No Splenomegaly, No Organomegaly - Extremities Extremities Exam: POSITIVE: Normal Inspection, Full ROM, Normal Capillary Refill , No Clubbing Present, No Edema Present, No Cyanosis Present, Negative Abby's sign, Dosalis Pedis Pulses - Stong & Regular - Neurological Neurological Exam: POSITIVE: Alert, Oriented x 3, Reflexes Normal, Normal Gait, CN II-XII Intact, No Facial Droop, Speech Intact / Clear, Moves All Extremities Equally, No Fasciculations, No Clonus - Psychiatric Psychiatric Exam: POSITIVE: Normal Affect, Normal Mood Results - Labs CBC and BMP: 07/25/17 08:55 07/25/17 08:55 Assessment and Plan - Patient Problems (1) Dark stools Current Visit: Yes Status: Acute Comment: IV Protonix Code(s): R19.5 - Other fecal abnormalities (2) Alcohol withdrawal syndrome Current Visit: No Status: Acute Code(s): F10.239 - Alcohol dependence with withdrawal, unspecified (3) Hypertension Current Visit: No Status: Acute Code(s): I10 - Essential (primary) hypertension Qualifiers: (4) Alcoholism Current Visit: No Status: Chronic Code(s): F10.20 - Alcohol dependence, uncomplicated (5) GI bleed Current Visit: Yes Status: Acute Code(s): K92.2 - Gastrointestinal hemorrhage, unspecified - Assessment / Plan Additional Assessment/Plan Details: [facility] the Precedex drip #2 hypokalemia replace with banana bags plus thiamine multivitamins #3 possible upper GI bleed with dark stools we will do Protonix IV #4 hypertension resume Norvasc 5 mg #5 anemia secondary to most likely chronic. Upper GI bleed will eventually need scoped if keeps on dropping or as an outpatient
[2017-07-25 11:31] LABS: AMPHETAMINE SCREEN NEGATIVE (NEG); CANNABINOID SCREEN,URINE NEGATIVE (NEG); COCAINE SCREEN NEGATIVE (NEG); METHADONE URINE SCREEN NEGATIVE (NEG); METHAMPHETAMINES SCREEN,URINE NEGATIVE (NEG); OPIATE SCREEN,URINE NEGATIVE (NEG); URINE SAMPLE TYPE VOIDED SPECIMEN; URINE SPECIFIC GRAVITY - MAN 1.015
[2017-07-25] MEDS ORDERED: LIDOCAINE HCL 2 % 10 ML JELLY URO-JECT TOPICAL PRN (12:56)
[2017-07-25] MEDS ORDERED: LIDOCAINE W/ SODIUM BICARB 0.5 ML SYR SUBD PRN (12:56)
[2017-07-25] MEDS ORDERED: Loperamide Tab 2 MG TABLET PO PRN (12:56)
[2017-07-25] MEDS ORDERED: MAGNESIUM 400 MG/5 ML - 30 ML (MILK OF MAGNESIA) PO PRN (12:56)
[2017-07-25] MEDS ORDERED: ONDANSETRON 4 MG/2 ML VIAL IV PRN (12:56)
[2017-07-25] MEDS ORDERED: LORazepam Inj(ETOH withdrawal) 2 MG/ML VIAL IVP PRN ×2 (12:56)
[2017-07-25] MEDS: Sodium Chloride 0.9% 1,000 ML PRIMARY IV SCH ×2 (13:23→21:22)
[2017-07-25] MEDS: Dexmedetomidine/NS 400 MCG/100 ML INFUS..BTL IV SCH ×2 (13:23→19:11)
[2017-07-25] MEDS: HEPARIN 5000 UNIT/1 ML SUBCUT SCH (16:39)
[2017-07-26] MEDS: HEPARIN 5000 UNIT/1 ML SUBCUT SCH (00:31)
[2017-07-26] MEDS: Dexmedetomidine/NS 400 MCG/100 ML INFUS..BTL IV SCH ×6 (00:31→22:02)
[2017-07-26] MEDS: Sodium Chloride 0.9% 1,000 ML PRIMARY IV SCH ×3 (04:34→12:47)
[2017-07-26] MEDS: MAG HYDROX/AL HYDROX/SIMETH 30 ML SUSP PO PRN ×2 (04:42→16:27)
[2017-07-26 05:27] LABS: BASOPHILS # (AUTO) 0.03 10*3/UL; BASOPHILS % (AUTO) 0.4 % (0-1); EOSINOPHILS # (AUTO) 0.08 10*3/UL; EOSINOPHILS % (AUTO) 1.2 % (0-8); Hematocrit [HCT] 26.5 % (42.0-52.0); Hemoglobin [HGB] 7.9 g/dL (14.0-18.0); LYMPHOCYTES # (AUTO) 0.88 10*3/uL; MEAN CORPUSCULAR HEMOGLOBIN 23.9 PG (27-31); MEAN CORPUSCULAR HGB CONC 29.8 g/dL (33-37); MEAN CORPUSCULAR VOLUME 80.1 FL (80-90); MEAN PLATELET VOLUME 11.7 FL (7.4-12.2); MONOCYTES % (AUTO) 14.8 % (5-15); NEUTROPHILS # (AUTO) 4.74 10*3/UL; NEUTROPHILS % (AUTO) 70.4 % (50-80); RED BLOOD COUNT 3.31 10^6/uL (4.70-6.10)
[2017-07-26 05:40] LABS: BLOOD UREA NITROGEN 6 mg/dL (7-22); SERUM ALBUMIN 3.6 g/dL (3.5-4.8)
[2017-07-26 05:44] LABS: PLATELET MORPHOLOGY COMMENT NORMAL MORPHOLOGY (NORM); RBC MORPHOLOGY COMMENT NORMAL MORPHOLOGY (NORM); WBC MORPHOLOGY COMMENT NORMAL MORPHOLOGY (NORM)
--- NOTE | 2017-07-26 08:23 | PDOC(PROG) ---
Date and Time of Service: 07/26/2017 8:19 AM Interval History: Subjective Patient came into the hospital because of for alcohol withdrawal symptoms, he said he was sweating, had nausea, he was really shaky. He said he's been drinking 2/5 of vodka a day for a period of time. He had a history also for GERD, [place] that was 7 years ago. He had an ulcer and hiatal hernia the last time he had a scope was 7 years ago. He lives in [place] and he was fishing here was planning to go back home over the weekend but then he had the symptoms and came into the ER. He said he ran out on his blood pressure medication the last time he took it was 7 days ago. He suspects he has a sleep apnea but never had test done before. Overall he said he feels better. He did have some shortness of breath yesterday and he said its been going on for about 2 months he did notice also some black stool going on intermittently for more than 2 months. Last time he had a bowel movement was 3 days ago and was some what dark stool but not as bad as when he had the GI bleed 7 years ago. Objective : Data - Labs CBC and BMP: 07/26/17 12:01 07/26/17 04:48 Objective : Exam - General General Appearance: No Acute Distress, Cooperative - Head Head Exam: Normal Inspection - Eye Eye Exam: Normal Appearance - ENT ENT Exam: Normal Exam - Neck Neck Exam: Normal Inspection - Respiratory Respiratory Exam: Clear to Auscultation - Bilaterally - Cardiovascular Cardiovascular Exam: RRR - GI/Abdominal GI/Abdominal Exam: Normal Bowel Sounds, Non Tender, Non Distended, Soft, No Organomegaly - Rectal Rectal Exam: Deferred - External Exam: Deferred - Extremities Extremities Exam: Normal Inspection - Back Back Exam: Normal Inspection - Neurological Neurological Exam: Alert, Oriented x 3, CN II-XII Intact, No Facial Droop, Speech Intact / Clear, Moves All Extremities Equally - Psychiatric Psychiatric Exam: Normal Affect Assessment and Plan - Patient Problems (1) Alcohol withdrawal syndrome Current Visit: No Status: Acute Comment: He is on Precedex drip, he is still some what shaky when I saw him. I think will keep it for another day start thinking about tapering it off tomorrow. He is on multivitamins continue. Code(s): F10.239 - Alcohol dependence with withdrawal, unspecified (2) Hypertension Current Visit: No Status: Acute Comment: He said he normally on lisinopril and not set Norvasc will put him on lisinopril. Code(s): I10 - Essential (primary) hypertension Qualifiers: (3) Anemia Current Visit: Yes Status: Acute Comment: MCV was 79 yesterday so probably this is an iron deficiency anemia. He is describing intermittent dark stool for the last 2 months. I think will continue with Protonix will check his ferritin. We'll recheck his labs may discuss with surgery and see whether they would consider scope now or as an outpatient. Code(s): D64.9 - Anemia, unspecified
[2017-07-26] MEDS ORDERED: AmLODIPine Tab 5 MG TABLET PO SCH (09:00)
[2017-07-26] MEDS ORDERED: Pantoprazole Inj 40 MG in Normal Saline Flush 10 ML IVP SCH ×2 (09:00→21:00)
[2017-07-26] MEDS ORDERED: THIAMINE 100 MG/1 ML - 2 ML IM SCH (09:00)
[2017-07-26] MEDS ORDERED: PANTOPRAZOLE IV 40 MG VIAL ONE ×2 (09:22→21:19)
[2017-07-26] MEDS: LISINOPRIL 10 MG TABLET PO SCH ×2 (09:28→09:29)
[2017-07-26] MEDS: Thiamine Tab 100 MG TAB PO SCH (09:29)
[2017-07-26] MEDS ORDERED: Sodium Chloride 0.9% 1,000 ML with Multivitamin Inj 10 ML, Thiamine Inj 100 MG, Folic A... IV SCH ×5 (09:30)
[2017-07-26 12:05] LABS: Hematocrit [HCT] 25.8 % (42.0-52.0); Hemoglobin [HGB] 7.9 g/dL (14.0-18.0)
[2017-07-27] MEDS: Dexmedetomidine/NS 400 MCG/100 ML INFUS..BTL IV SCH ×3 (01:54→09:51)
[2017-07-27 06:32] LABS: BASOPHILS # (AUTO) 0.04 10*3/UL; BASOPHILS % (AUTO) 0.7 % (0-1); EOSINOPHILS # (AUTO) 0.16 10*3/UL; EOSINOPHILS % (AUTO) 2.6 % (0-8); Hematocrit [HCT] 27.5 % (42.0-52.0); Hemoglobin [HGB] 8.1 g/dL (14.0-18.0); LYMPHOCYTES # (AUTO) 1.18 10*3/uL; MEAN CORPUSCULAR HEMOGLOBIN 23.5 PG (27-31); MEAN CORPUSCULAR HGB CONC 29.5 g/dL (33-37); MEAN CORPUSCULAR VOLUME 79.7 FL (80-90); MEAN PLATELET VOLUME 11.5 FL (7.4-12.2); MONOCYTES # (AUTO) 0.91 10*3/UL (0.3-0.8); MONOCYTES % (AUTO) 14.9 % (5-15); NEUTROPHILS # (AUTO) 3.82 10*3/UL; NEUTROPHILS % (AUTO) 62.3 % (50-80); RED BLOOD COUNT 3.45 10^6/uL (4.70-6.10)
[2017-07-27 06:47] LABS: PLATELET MORPHOLOGY COMMENT NORMAL MORPHOLOGY (NORM); WBC MORPHOLOGY COMMENT NORMAL MORPHOLOGY (NORM)
[2017-07-27 06:48] LABS: RBC MORPHOLOGY COMMENT NORMAL MORPHOLOGY (NORM)
[2017-07-27 06:58] LABS: BLOOD UREA NITROGEN 5 mg/dL (7-22); BUN/CREATININE RATIO 6.25 (6-20); SERUM ALBUMIN 3.7 g/dL (3.5-4.8)
--- NOTE | 2017-07-27 07:19 | PDOC(PROG) ---
Date and Time of Service: 07/27/2017 7:20 AM Interval History: Subjective Patient is feeling tired. His withdrawal symptoms though seems to be better. His shakiness improved, nausea is also improved. His appetite is not back to usual though. Some shortness of breath. Objective : Data - Labs CBC and BMP: 07/27/17 05:12 07/27/17 05:12 Objective : Exam - General General Appearance: Cooperative, Obese Additional General Exam Details: Looks tired - Head Head Exam: Normal Inspection - Eye Eye Exam: Normal Appearance - ENT ENT Exam: Normal Exam - Neck Neck Exam: Normal Inspection - Respiratory Respiratory Exam: Clear to Auscultation - Bilaterally - Cardiovascular Cardiovascular Exam: RRR - GI/Abdominal GI/Abdominal Exam: Normal Bowel Sounds, Non Tender, Non Distended, Soft, No Organomegaly - Rectal Rectal Exam: Deferred - External Exam: Deferred - Extremities Extremities Exam: Normal Inspection - Back Back Exam: Normal Inspection - Neurological Neurological Exam: Alert, Oriented x 3, CN II-XII Intact, Speech Intact / Clear , Moves All Extremities Equally - Psychiatric Psychiatric Exam: Normal Affect Assessment and Plan - Patient Problems (1) Alcohol withdrawal syndrome Current Visit: No Status: Acute Comment: I think we'll try to take him of the Precedex off today and use the Ativan. Continue multivitamins. Code(s): F10.239 - Alcohol dependence with withdrawal, unspecified (2) Hypertension Current Visit: No Status: Acute Comment: Continue lisinopril Code(s): I10 - Essential (primary) hypertension Qualifiers: (3) Anemia Current Visit: Yes Status: Acute Comment: Looks iron deficiency anemia. Will put him on iron pills. I did speak with Dr. Paredes regarding scope who suggested that he follow-up with his physician as an outpatient in [place]. Continue Protonix Code(s): D64.9 - Anemia, unspecified
[2017-07-27] MEDS ORDERED: FERROUS SULFATE 325 MG TABLET PO SCH (09:00)
[2017-07-27] MEDS ORDERED: Multivitamin Tab 1 TAB PO SCH (09:00)
[2017-07-27] MEDS: LISINOPRIL 10 MG TABLET PO SCH (09:42)
[2017-07-27] MEDS: PANTOPRAZOLE 40 MG TABLET PO SCH ×2 (09:42→16:54)
[2017-07-27] MEDS: Thiamine Tab 100 MG TAB PO SCH (09:42)
[2017-07-27] MEDS: Sodium Chloride 0.9% 1,000 ML PRIMARY IV SCH (12:55)
[2017-07-27] MEDS ORDERED: MAGNESIUM 400 MG/5 ML - 30 ML (MILK OF MAGNESIA) PO PRN (16:20)
[2017-07-27] MEDS ORDERED: Loperamide Tab 2 MG TABLET PO PRN (16:20)
[2017-07-27] MEDS ORDERED: LORazepam Inj(ETOH withdrawal) 2 MG/ML VIAL IVP PRN (16:20)
[2017-07-27] MEDS ORDERED: ONDANSETRON 4 MG/2 ML VIAL IV PRN (16:20)
[2017-07-27] MEDS ORDERED: MAG HYDROX/AL HYDROX/SIMETH 30 ML SUSP PO PRN (16:20)
[2017-07-27] MEDS ORDERED: PANTOPRAZOLE 40 MG TABLET PO ONE (17:00)
[2017-07-27] MEDS: LORazepam Inj(ETOH withdrawal) 2 MG/ML VIAL IVP PRN ×3 (18:59→23:41)
[2017-07-28] MEDS: LORazepam Inj(ETOH withdrawal) 2 MG/ML VIAL IVP PRN ×10 (01:24→22:59)
[2017-07-28 05:53] LABS: BASOPHILS # (AUTO) 0.05 10*3/UL; BASOPHILS % (AUTO) 0.6 % (0-1); EOSINOPHILS # (AUTO) 0.06 10*3/UL; EOSINOPHILS % (AUTO) 0.7 % (0-8); Hematocrit [HCT] 28.3 % (42.0-52.0); Hemoglobin [HGB] 8.5 g/dL (14.0-18.0); LYMPHOCYTES # (AUTO) 1.37 10*3/uL; MEAN CORPUSCULAR HEMOGLOBIN 23.9 PG (27-31); MEAN CORPUSCULAR VOLUME 79.7 FL (80-90); MEAN PLATELET VOLUME 11.7 FL (7.4-12.2); MONOCYTES # (AUTO) 0.97 10*3/UL (0.3-0.8); NEUTROPHILS # (AUTO) 6.34 10*3/UL; NEUTROPHILS % (AUTO) 71.9 % (50-80); RED BLOOD COUNT 3.55 10^6/uL (4.70-6.10)
[2017-07-28 06:11] LABS: PLATELET MORPHOLOGY COMMENT NORMAL MORPHOLOGY (NORM); RBC MORPHOLOGY COMMENT NORMAL MORPHOLOGY (NORM); WBC MORPHOLOGY COMMENT NORMAL MORPHOLOGY (NORM)
[2017-07-28] MEDS: PANTOPRAZOLE 40 MG TABLET PO SCH ×2 (07:04→16:05)
--- NOTE | 2017-07-28 08:39 | PDOC(PROG) ---
Date and Time of Service: 07/28/2017 8:49 AM Interval History: Subjective Patient feels better although he has still have some withdrawal symptoms and getting Ativan. He is denying other symptoms. He did mention for the first time to me that he actually was in hospital in [place] he was vomiting blood it sounded and that he had an EGD an ulcer was found although he is not sure. Objective : Data - Labs CBC and BMP: 07/28/17 05:21 07/27/17 05:12 Objective : Exam - General General Appearance: No Acute Distress - Head Head Exam: Normal Inspection - Eye Eye Exam: Normal Appearance - ENT ENT Exam: Normal Exam - Neck Neck Exam: Normal Inspection - Respiratory Respiratory Exam: Clear to Auscultation - Bilaterally - Cardiovascular Cardiovascular Exam: RRR - GI/Abdominal GI/Abdominal Exam: Normal Bowel Sounds, Non Tender, Non Distended, Soft, No Organomegaly - Rectal Rectal Exam: Deferred - External Exam: Deferred - Extremities Extremities Exam: Normal Inspection - Back Back Exam: Normal Inspection - Neurological Neurological Exam: Alert, Oriented x 3, CN II-XII Intact, Speech Intact / Clear , Moves All Extremities Equally - Psychiatric Psychiatric Exam: Normal Affect - Integumentary Integumentary Exam: Normal Color Assessment and Plan - Patient Problems (1) Alcohol withdrawal syndrome Current Visit: No Status: Acute Comment: Continue with CIWA protocol, I think I'll add some Librium. Continue multivitamins. Code(s): F10.239 - Alcohol dependence with withdrawal, unspecified (2) Hypertension Current Visit: No Status: Acute Comment: Blood pressure is elevated I think probably secondary to some withdrawal. We'll keep an eye on it continue lisinopril Code(s): I10 - Essential (primary) hypertension Qualifiers: (3) Anemia Current Visit: Yes Status: Acute Comment: He is on iron and MVI continue. We'll try to get records from his previous hospitalistion to see what they found on endoscopy Code(s): D64.9 - Anemia, unspecified
[2017-07-28] MEDS ORDERED: LISINOPRIL 10 MG TABLET PO SCH (09:00)
[2017-07-28] MEDS: ChlordiazePOXIDE Cap 25 MG CAPSULE PO SCH ×3 (09:22→20:46)
[2017-07-28] MEDS: Thiamine Tab 100 MG TAB PO SCH (09:22)
[2017-07-28] MEDS: Multivitamin Tab 1 TAB PO SCH (09:22)
[2017-07-28] MEDS: FERROUS SULFATE 325 MG TABLET PO SCH (09:22)
[2017-07-29] MEDS: LORazepam Inj(ETOH withdrawal) 2 MG/ML VIAL IVP PRN ×4 (01:10→07:36)
[2017-07-29] MEDS: PANTOPRAZOLE 40 MG TABLET PO SCH (07:22)
[2017-07-29] MEDS: Thiamine Tab 100 MG TAB PO SCH (08:31)
[2017-07-29] MEDS: Multivitamin Tab 1 TAB PO SCH (08:31)
[2017-07-29] MEDS: ChlordiazePOXIDE Cap 25 MG CAPSULE PO SCH (08:31)
[2017-07-29] MEDS: FERROUS SULFATE 325 MG TABLET PO SCH (08:32)
[2017-07-29] MEDS ORDERED: LISINOPRIL 20 MG TABLET PO SCH (09:00)
[2017-07-29] MEDS ORDERED: LORazepam 1 mg tab (ETOH withdrawal) PO PRN (09:02)
--- NOTE | 2017-07-29 09:07 | PDOC(PROG) ---
Date and Time of Service: 07/29/2017 9:08 AM Interval History: Subjective Patient feels better, though he was anxious this morning he needed some Ativan. They found a place in [place] for rehabilitation. Objective : Data - Labs CBC and BMP: 07/28/17 05:21 07/27/17 05:12 Objective : Exam - General General Appearance: No Acute Distress, Cooperative, Obese - Head Head Exam: Normal Inspection - Eye Eye Exam: Normal Appearance - ENT ENT Exam: Normal Exam - Neck Neck Exam: Normal Inspection - Respiratory Respiratory Exam: Clear to Auscultation - Bilaterally - Cardiovascular Cardiovascular Exam: RRR - GI/Abdominal GI/Abdominal Exam: Normal Bowel Sounds, Non Tender, Non Distended, Soft, No Organomegaly - Rectal Rectal Exam: Deferred - External Exam: Deferred - Extremities Extremities Exam: Normal Inspection - Back Back Exam: Normal Inspection - Neurological Neurological Exam: Alert, Oriented x 3, CN II-XII Intact, Moves All Extremities Equally - Psychiatric Psychiatric Exam: Normal Affect - Integumentary Integumentary Exam: Normal Color Assessment and Plan - Patient Problems (1) Alcohol withdrawal syndrome Current Visit: No Status: Acute Comment: he got Ativan IV will switch him to by mouth. The said the Librium doesn't work well for him will DC . I'll speak with the internet media planner about contacting the place in [place] and see whether they can take him todya ot tomorrow Code(s): F10.239 - Alcohol dependence with withdrawal, unspecified (2) Hypertension Current Visit: No Status: Acute Comment: Blood pressure was elevated I increased the lisinopril. Code(s): I10 - Essential (primary) hypertension Qualifiers: (3) Anemia Current Visit: Yes Status: Acute Comment: He has iron deficiency anemia, he is iron replacement the records from [place] showed that he had the esophageal ulcer with esophagitis. Did tell him he needs follow-up at one point as an outpatient for the anemia. Code(s): D64.9 - Anemia, unspecified
[2017-07-29 10:55] VITALS: O2SAT 96
[2017-07-29 10:59] VITALS: BP 136/96; RESP 18; TEMP 98.7
--- NOTE | 2017-07-29 12:23 | PTI REPORT ---
Thank you for the referral of Roberto Jacob. He was seen on 07/28/17 for an inpatient evaluation secondary to alcohol withdrawal syndrome. SUBJECTIVE: The patient is a 47-year-old male. The patient reports he was brought by the ER on the due to alcohol withdrawal. He also states this is not the first time that this has happened and has been hospitalized for similar symptoms in the past. He states since has been in the hospital for a few days he is feeling much better and is hoping to go home soon. He denies using any assistive devices at home; however, was encouraged to use a walker while here in the hospital, which he refused. PAST MEDICAL HISTORY: Past medical history can be found in the patient's medical record. OBJECTIVE FINDINGS: Bed mobility: The patient was able to perform all bed mobility and transfers with stand by assistance with verbal cues for safety awareness. Range of motion: His upper extremity and lower extremity range of motion is well within functional limits. Ambulation: The patient is able to ambulate up to 100 feet with verbal cues and contact guard assistance with gait belt due to a shaky gait pattern with a wide base of support. Strength: His lower extremity strength at best is 4-/5 in all planes. Cognition: At the time of the evaluation the patient was cognitive x3. ASSESSMENT: Problem List: Safety awareness with ambulation Weakness Generalized safety awareness Physical Therapy Goals: To be met by discharge from inpatient: Patient will be able to ambulate up to 300 feet with appropriate assistive device without loss of balance for household and community ambulation. Patient will increase lower extremity strength at least 1/2 grade greater to help with endurance activities as well as safety with all bed mobility and transfers. TREATMENT PLAN: Patient will be seen B.I.D during the week and one time per day over the weekend as an inpatient to address the above goals and objectives. INITIAL TREATMENT: Treatment today consisted of the initial evaluation only. TRINI
--- NOTE | 2017-07-29 12:29 | DCSUMMARY ---
Hospitalization Summary Admit Date: 07/25/2017 Discharge Date: 07/29/17 Hospital Course: Discharge diagnoses 1. Alcohol withdrawal 2. Iron deficiency anemia 3. Hypertension 4. History of esophageal ulcer with esophagitis back in May 2017 Hospital course This is a 47 years old male with medical history significant for history of alcoholism, history of GERD and esophageal ulcer with esophagitis before who was brought to the hospital with complaint of alcohol withdrawal. The patient been drinking heavily the last month and a half. He's been drinking 2/5 of vodka a day. He came into the ER having symptom of withdrawal including being shaky and weak and also reported some shortness of breath. Patient did report some intermittent black stool the last 2 months. Patient received Ativan and banana bag while in the ER. CTA of the chest showed no PE and CT of the abdomen no acute abnormalities. He was admitted to the hospital for the management of alcohol withdrawal was admitted by Dr. Prieto please see his note. Patient was put on Protonix, fluids and started on Precedex drip. I saw the next day he was still withdrawing so we continued with the Precedex infusion. His hemoglobin did drop initially from 9.2-7.9. I did speak with the surgeon Dr. Dr. Paredes who suggested outpatient follow-up. His hemoglobin remained stable actually improved to 8.5 later on. Investigation revealed that he has iron deficiency anemia. I did tell him probably need to have another scope as an outpatient. Last scope he had was in [place] in May this year and it did show esophagitis with esophageal ulcer. We did put him on Protonix. Eventually we switched him from Precedex to Ativan and continued the treatment while he is here. He was hypertensive and put him back on lisinopril and had to increase the dosage. He was not taking his medication for a week prior to presentation. Patient was interested in inpatient rehabilitation and was arranged for him to get a treatment in a center in [place]. Patient will be discharged from the hospital and his will take him to that facility and admitted there for continuation of his treatment and alcohol rehabilitation. Discharge suction Diet regular Activity as started Medications Current Medication(s) 3 Medication Instructions Recorded Confirmed Type Omeprazole DR [PriLOSEC] 20 mg PO DAILY 11/25/16 07/25/17 History Lisinopril 10 mg PO DAILY 07/25/17 07/25/17 History Ferrous Sulfate [Feosol] 325 mg PO DAILY tab 07/29/17 Rx Lisinopril [Prinivil Tab] 20 mg PO DAILY tab 07/29/17 Rx Multivitamin Tab [Thera Tab] 1 tab PO DAILY tab 07/29/17 Rx Pantoprazole Sodium [Protonix] 40 mg PO BID AC tab 07/29/17 Rx Thiamine HCl [Vitamin B-1] 100 mg PO DAILY tab 07/29/17 Rx Follow-up with PCP post discharge from the facility. Patient will need at one point as an outpatient scopes done to investigate his iron deficiency anemia Condition at discharge was stable for discharge Exam - Vitals Vital Signs: Vital Signs Temperature 98.7 F Temperature Source Temporal Artery Scan Pulse Rate [Pulse Oximeter] 101 Pulse Rate [Apical] 76 Pulse Rate [Telemetry] 110 Pulse Rate 108 Respiratory Rate 18 Blood Pressure [right] 167/105 Blood Pressure [Right Arm] 168/106 Blood Pressure [Right Radial 139/110 Artery] Blood Pressure 136/96 Pulse Ox 96 Oxygen Flow Rate 5 Oxygen Delivery Method Room Air Height 6 ft 3 in Weight 298 lb Patient Problems - Patient Problem List (1) Alcohol withdrawal syndrome Status: Acute Code(s): F10.239 - Alcohol dependence with withdrawal, unspecified Category: Medical (2) Hypertension Status: Acute Code(s): I10 - Essential (primary) hypertension Qualifiers: Category: Medical (3) Anemia Status: Acute Code(s): D64.9 - Anemia, unspecified Category: Medical
--- NOTE | 2017-07-29 14:29 | PT.PROG ---
Progress Note Progress Note: S. Patient stated he is feeling "wobbly" this morning, he agreed to go to the therapy gym however. O. patient ambulated 175 feet to the therapy gym where he used the nu-step x 10 minutes, then performed sit to stands x 20, box step ups with #3 box x 10 each leg, balance activities in the form of; walk the line x2 and standing balance 2x30 seconds. Patient was left with OT for further therapy. A. Patient tolerated therapy fair, this morning, he was becoming very fatigued towards the end of the therapy session, he would continue to benefit from skilled therapy to increase balance and endurance. P. Continue POC until Discharged.
--- NOTE | 2017-07-29 15:54 | OTI REPORT ---
Thank you for the referral of Roberto Jacob. He was seen on 07/28/17 for an occupational therapy inpatient evaluation secondary to alcohol withdrawal syndrome. SUBJECTIVE: The patient is a 47-year-old male who reports that he has been in and out of the hospital at least 7 or 8 times for alcohol detox. He reports that he is from the [place], [place] area and he was up in [place] visiting his cousin. They went on some fishing trips and were drinking. He states when he does get on his drinking binges he will go 4-5 days straight drinking fifths of Vodka. His was present during the evaluation today. She did not verbalize much about the alcoholism; however, they did state that they like to travel together. They have three daughters; one of which is still in high school and in the house. 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 He also reported that he would like to try to get into a 30 day alcohol rehab facility at some point down in [place]. PAST MEDICAL HISTORY: Past medical history can be found in the patient's medical record. OBJECTIVE FINDINGS: General observations: The patient demonstrated some tremors. The patient still had a somewhat glazed over affect. He did participate in conversation, but his face remained somewhat flat during conversation. Today the patient demonstrated three bouts of incontinence. He stood up and over and would urinate on the floor. He reports that he just had his catheter taken out and he is having a lot of difficulty controlling his bladder. Range of motion: He had within functional limits for both upper and lower extremity range of motion. Strength: The patient's upper extremity strength is limited. He demonstrated strength of 3+/5 for shoulder flexion and abduction. Elbow strength was 4/5. Wrist strength was 3+/5. Activities of daily living: The patient requires mod assist to don socks and shoes. The patient requires min assist for lower extremity dressing. The patient was independent with upper extremity dressing after set up. Transfers: The patient requires min to mod assist for functional transfers secondary to his balance. Ambulation: The patient ambulated with hand hold assist and min to mod assist for his balance as he is still very wobbly. ASSESSMENT: The patient has negative coping mechanisms at this point in time and would benefit from an alcohol rehab facility. Problem List: Weakness Decreased safety awareness Decreased ability to complete ADLs Decreased ability to complete functional transfers Short-Term Goals: To be met by discharge from inpatient: Patient will be able to dress self independently including set up. Patient will be able to shower self independently. Patient will complete all functional transfers safely and independently. Patient will increase upper extremity strength to 5/5 for safety and overall abilities. Long-Term Goals: To be met following discharge from inpatient: Patient will return to [place] with his , hopefully being able to get into an inpatient 30 day alcohol rehabilitation program. TREATMENT PLAN: Patient will be seen B.I.D during the week and one time per day over the weekend as an inpatient to address the above goals and objectives. INITIAL TREATMENT: Treatment today consisted of the initial evaluation followed by the patient ambulating down to therapy. Once down in therapy the patient had to take a three minute break. He then participated in some upper and lower extremity strengthening exercises. TRINI
--- NOTE | 2017-07-30 14:37 | OT AM DAY ---
Diagnosis : Alcohol Withdrawal Syndrome AM - Occupational Therapy S: Patient states that he is just not feeling right; he is still dizzy. He does feel like his strength is returning though. O: Patient was transferred down by PT. After PT finished up we completed some standing dynamic balance activity with tapping of balloon back and forth for up to five minutes, sitting and standing. He then completed green theraband exercises in biceps flexion and shoulder extension. At this time he reported that he was not feeling well and he requested to return to his room. He transferred back to his room with stand by assist for safety. He was left in his chair with call light on. A: Patient may continue to benefit from therapy to address his overall balance. P: Continue seeing patient BID during the week and one time per day over the weekend per plan of care with possible discharge this morning. TRINI
== END 2017-07-29 13:13 | disposition home or self-care (01) | DRG 897 ==
LOC: ER 08:48 → ICU 11:38 → MED/SURG 07-27 16:14
PROVIDERS: ADMIT Internal Medicine; ATTEND Internal Medicine